=== PATIENT | female | born 1970 | race Two or more races ===

== ENCOUNTER 2019-05-21 13:01 | Emergency (ER) | payer BC, OTHER ==
--- NOTE | 2019-05-21 13:25 | EDM.PDOC ---
ED HPI GENERAL MEDICAL PROBLEM - General Chief Complaint: Lower Extremity Injury/Pain Stated Complaint: [place] SLOAN FOOT Time Seen by Provider: 05/21/19 13:25 Source of Information: Reports: Patient History Limitations: Reports: No Limitations - History of Present Illness INITIAL COMMENTS - FREE TEXT/NARRATIVE: HISTORY AND PHYSICAL: History of present illness: Patient is a 48-year-old female presents to the ED with complaint of left foot injury. States that she dropped a shampoo bottle on her foot this morning. She has been able to walk on it but states this painful. She denies proximal pain or injury. Review of systems: As per history of present illness and below otherwise all systems reviewed and negative. Past medical history: As per history of present illness and as reviewed below otherwise noncontributory. Surgical history: As per history of present illness and as reviewed below otherwise noncontributory. Social history: No reported history of drug or alcohol abuse. Family history: As per history of present illness and as reviewed below otherwise noncontributory. Physical exam: General: Patient sitting comfortably in no acute distress and nontoxic appearing HEENT: Atraumatic, normocephalic, pupils reactive, negative for conjunctival pallor or scleral icterus, mucous membranes moist, throat clear, neck supple, nontender, trachea midline. No meningeal signs. Lungs: Clear to auscultation, breath sounds equal bilaterally, chest nontender. Heart: S1S2, regular, negative for clicks, rubs, or overt murmur. Abdomen: Soft, nondistended, nontender. Negative for masses or hepatosplenomegaly. Negative for costovertebral tenderness. No rigidity, rebound , guarding. Pelvis: Stable nontender. Genitourinary: Deferred. Rectal: Deferred. Extremities: There is a large hematoma to the dorsal lateral aspect of the foot. no proximal pain to palpation. negative for cords or calf pain. Neurovascular unremarkable. Neuro: Awake, alert, oriented. Cranial nerves II through XII unremarkable. Cerebellum unremarkable. Motor and sensory unremarkable throughout. Exam nonfocal. Notes: Diagnostics: X-ray left foot Therapeutics: Postop shoe Crutches Prescriptions: Impression: Left foot injury Plan: 1. Ice, elevate, and motrin or tylenol as needed 2. Follow up with podiatry, please call the number provided to schedule an appointment 3. Return to ED as needed as discussed Definitive disposition and diagnosis as appropriate pending reevaluation and review of above. Left Foot Pain Score (Numeric/FACES): 6 - Related Data Allergies Allergy/AdvReac Type Severity Reaction Status Date / Time Sulfa (Sulfonamide Allergy Rash Verified 05/21/19 13:15 Antibiotics) Home Meds: Home Meds Estradiol [Vivelle-Dot] 0.05 mg TRDERM DAILY 05/21/19 [History] Venlafaxine [Effexor] 37.5 mg PO DAILY 05/21/19 [History] traZODone HCl [Trazodone HCl] 50 mg PO BEDTIME 05/21/19 [History] Review of Systems - Review of Systems Review Of Systems: ROS reveals no pertinent complaints other than HPI. ED EXAM, GENERAL - Physical Exam Exam: See Below (See dictation) Course - Vital Signs Last Recorded V/S: Last Vital Signs Temp 97.1 F 05/21/19 13:11 Pulse 66 05/21/19 13:11 Resp 18 05/21/19 13:11 BP 144/79 H 05/21/19 13:11 Pulse Ox 99 05/21/19 13:11 Departure - Departure Time of Disposition: 14:08 Disposition: Home, Self-Care 01 Condition: Good Clinical Impression: Injury of left foot - Discharge Information Referrals: PCP,None [Primary Care Provider] - Forms: ED Department Discharge Additional Instructions: The following information is given to patients seen in the emergency department who are being discharged to home. This information is to outline your options for follow-up care. We provide all patients seen in our emergency department with a follow-up referral. The need for follow-up, as well as the timing and circumstances, are variable depending upon the specifics of your emergency department visit. If you don't have a primary care physician on staff, we will provide you with a referral. We always advise you to contact your personal physician following an emergency department visit to inform them of the circumstance of the visit and for follow-up with them and/or the need for any referrals to a consulting specialist. The emergency department will also refer you to a specialist when appropriate. This referral assures that you have the opportunity for follow-up care with a specialist. All of these measure are taken in an effort to provide you with optimal care, which includes your follow-up. Under all circumstances we always encourage you to contact your private physician who remains a resource for coordinating your care. When calling for follow-up care, please make the office aware that this follow-up is from your recent emergency room visit. If for any reason you are refused follow-up, please contact the [facility] at and asked to speak to the emergency department charge nurse. [facility] [address], [place] [address] [facility] [address] [place] [id number] [facility] [address] [place] [address] 1. Ice, elevate, and motrin or tylenol as needed 2. Follow up with podiatry, please call the number provided to schedule an appointment 3. Return to ED as needed as discussed
--- NOTE | 2019-05-21 14:06 | CR ---
INDICATION: Lateral pain and swelling. TECHNIQUE: Three views left foot. FINDINGS: Small accessory ossicle adjacent to the cuboid. Mild moderate soft tissue swelling lateral aspect of left foot as well as dorsally in the left forefoot. No acute fracture or dislocation in left foot. Mild degenerative arthritis left foot. Remainder negative. Dictated by Devante Buck MD @ May 21 2019 2:05PM Signed by Dr. Devante Buck @ May 21 2019 2:05PM
== END 2019-05-21 14:46 | disposition home or self-care (01) ==
LOC: MW.ED 13:01
DX: S90.32XA Contusion of left foot, initial encounter (principal); Z88.2 Allergy status to sulfonamides; Z79.899 Other long term (current) drug therapy; W20.8XXA Other cause of strike by thrown, projected or falling object, initial encounter
CPT/HCPCS: 73630-26-LT; 73630-LT; 99282; 99283-25